=== PATIENT | male | born 1955 | race African-American/Black ===

== ENCOUNTER 2016-07-02 16:31 | Emergency (ER) | payer MEDICARE, OTHER ==
[~2016-07-02] VITALS: Ht 180.3 cm; Wt 50.5 kg
[2016-07-02 16:34] VITALS: Ht 180.3 cm; Wt 50.5 kg
[2016-07-02] MEDS ORDERED: SOD CHLORIDE 0.9% 500 ML IV STA (16:48)
[2016-07-02] MEDS ORDERED: TAMS-14 PO (17:10)
[2016-07-02] MEDS ORDERED: ASPI81TA3 PO (17:10)
[2016-07-02] MEDS ORDERED: CLOP75TA27 PO (17:11)
[2016-07-02] MEDS ORDERED: CALC667T PO (17:11)
[2016-07-02 17:13] LABS: ABNORMAL IP MESSAGE 1; BASOPHILS % 0.1 % (0.0-2.0); EOSINOPHILS % 0.1 % (0.0-7.0); HEMATOCRIT 24.9 % (42.0-52.0); HEMOGLOBIN 7.9 g/dl (14.0-18.0); LYMPHOCYTES # 0.5 10^3/ul (0.8-2.9); LYMPHOCYTES % 6.7 % (15.0-51.0); MEAN CORPUSCULAR HGB CONC 31.7 g/dl (32.0-37.0); MEAN CORPUSCULAR VOLUME 94.7 fl (82.0-101.0); MEAN PLATELET VOLUME 11.7 fl (7.4-10.4); MONOCYTE # 0.6 10^3/ul (0.3-0.9); MONOCYTES % 7.5 % (0.0-11.0); NEUTROPHIL # 6.4 10^3/ul (1.6-7.5); NEUTROPHILS % 85.2 % (39.0-77.0); PLATELET COUNT 224 10^3/UL (140-415); RED BLOOD COUNT 2.63 10^6/ul (4.70-6.10); WHITE BLOOD COUNT 7.5 10^3/ul (4.8-10.8)
[2016-07-02 17:15] LABS: ADD SCAN DIFF YES
[2016-07-02 17:27] LABS: CHLORIDE 97 mmol/L (97-110); POTASSIUM 4.8 mmol/L (3.5-5.1); SODIUM 144 mmol/L (135-144)
[2016-07-02 17:30] LABS: ANION GAP 29 (8-16); BLOOD UREA NITROGEN 57 mg/dl (7-20); CARBON DIOXIDE 23 mmol/L (21-31); CREATININE 11.55 mg/dl (0.61-1.24); GLUCOSE 127 mg/dl (70-220)
[2016-07-02 17:31] LABS: CALCIUM 9.3 mg/dl (8.4-10.2)
[2016-07-02 17:46] LABS: TROPONIN-I < 0.012 ng/ml (0.00-0.12)
--- NOTE | 2016-07-02 18:20 | RADRPT ---
PROCEDURE: XR Chest. CLINICAL INDICATION: Chest pain TECHNIQUE: AP view of the chest was performed. COMPARISON: None FINDINGS: Borderline cardiomegaly is present. The lungs are clear. No signs of pleural fluid or pneumothorax are seen. The osseous structures and soft tissues are unremarkable. IMPRESSION: No evidence for active cardiopulmonary disease. Borderline cardiomegaly. RPTAT: QQ .Leigh Ann Serrato MD, MD Date Time Electronically viewed and signed by .Leigh Ann Serrato MD, on 07/02/2016 18:20 .F/
[2016-07-02] MEDS ORDERED: SOD CHLORIDE 0.9% 500 ML IV ONE (18:30)
[2016-07-02 19:30] VITALS: BP 115/69; PULSE 67; RESP 17
--- NOTE | 2016-07-02 19:52 | ERD ---
ER Documentation Chief Complaint Date/Time DATE: 07/02/16 TIME: 19:48 Chief Complaint BROUGHT IN BY EMS FROM GAME DUE TO FEELING DIZZY HPI This a 60-year-old male who is here for low blood pressure. The patient said he had dialysis yesterday late afternoon and he took off too much fluid. The patient was umpiring a baseball game. He was getting up to go [place] the second game and he felt dizzy and sat down. He says he knew his blood pressure is low because he had this happen many times before the day after dialysis. The patient did eat food today. The patient states that he had no headache no chest pain no focal neurological complaints no speech changes no nausea vomiting diarrhea or abdominal pain. EMS reports systolic blood pressure in the 70s and 80s. ROS All systems reviewed and are negative except as per history of present illness. Medications Home Meds Reported Medications Calcium Acetate (Calcium Acetate) 667 Mg Tablet, 667 MG PO WITH MEALS, #30 TAB 07/02/16 Clopidogrel Bisulfate (Clopidogrel) 75 Mg Tablet, 75 MG PO DAILY, #30 TAB 07/02/16 Aspirin* (Aspirin* Chew) 81 Mg Tab.chew, 81 MG PO DAILY, TAB.CHEW 07/02/16 Tamsulosin Hcl* (Flomax*) 0.4 Mg Cap.er.24h, 0.4 MG PO HS, CAP 07/02/16 Allergies Allergies: Coded Allergies: No Known Allergy (Unverified , 07/02/16) PMhx/Soc History of Surgery: Yes (stent in kidney, dialysis fistula ) Hx Alcohol Use: No Hx Substance Use: No Hx Tobacco Use: No Smoking Status: Never smoker FmHx Family History: No coronary disease Physical Exam Vitals Vital Signs Date Time Temp Pulse Resp B/P Pulse Ox O2 Delivery O2 Flow Rate FiO2 07/02/16 18:03 75 16 91/60 100 Room Air 07/02/16 16:59 78 16 82/52 100 Room Air 07/02/16 16:34 98.5 77 16 72/40 98 Physical Exam Const: Well-developed, well-nourished Head: Atraumatic, normocephalic Eyes: Normal Conjunctiva, PERRLA, EOMI, normal sclera, no nystagmus ENT: Normal External Ears, Nose and Mouth, moist mucus membranes. Neck: Full range of motion. No meningismus, no lymphadenopathy. Resp: Clear to auscultation bilaterally, no wheezing, rhonchi, rales Cardio: Regular rate and rhythm, no murmurs, S1 S2 present Abd: Soft, non tender x 4, non distended. Normal bowel sounds, no guarding or rebound, no pulsitile abdominal masses or bruits Skin: No petechiae or rashes, no ecchymosis , no maculopapular rash Back: No midline or flank tenderness Ext: No cyanosis, or edema, FROM x 4, normal inspection, neurovascularly intact x 4 Neur: Awake and alert, STR 5/5 x 4, sensation intact x 4, no focal findings, cerebellum intact Psych: Normal Mood and Affect Result Diagram: 07/02/16 1705 07/02/16 170 Results 24 hrs Laboratory Tests Test 07/02/16 17:05 Anion Gap 29 Basophils # 0.010^3/ul Basophils % 0.1% Blood Urea Nitrogen 57mg/dl Calcium Level 9.3mg/dl Carbon Dioxide Level 23mmol/L Chloride Level 97mmol/L Creatinine 11.55mg/dl Eosinophils # 0.010^3/ul Eosinophils % 0.1% Glucose Level 127mg/dl Hematocrit 24.9% Hemoglobin 7.9g/dl Lymphocytes # 0.510^3/ul Lymphocytes % 6.7% Mean Corpuscular Hemoglobin 30.0pg Mean Corpuscular Hemoglobin Concent 31.7g/dl Mean Corpuscular Volume 94.7fl Mean Platelet Volume 11.7fl Monocytes # 0.610^3/ul Monocytes % 7.5% Neutrophils # 6.410^3/ul Neutrophils % 85.2% Nucleated Red Blood Cells # 0.010^3/ul Nucleated Red Blood Cells % 0.0/100WBC Platelet Count 53311^3/UL Potassium Level 4.8mmol/L Red Blood Count 2.6310^6/ul Red Cell Distribution Width 15.0% Sodium Level 144mmol/L Troponin I < 0.012ng/ml White Blood Count 7.510^3/ul Current Medications Medications (Trade) Dose Ordered Sig/Isa Route PRN Reason Start Time Stop Time Status Last Admin Dose Admin Sodium Chloride 500 ml @ 500 mls/hr Q1H STAT IV 07/02/16 16:48 07/02/16 17:47 DC 07/02/16 18:02 Sodium Chloride (NS) 500 ml @ 500 mls/hr Q1H ONCE IV 07/02/16 18:30 07/02/16 19:29 DC 07/02/16 18:51 Procedures/MDM Patient received 1 L normal saline blood pressure is now 115 systolic. Patient is walking around the ER and says he is not dizzy and has no symptoms to go. Departure Diagnosis: Primary Impression: Hypotension Hypotension type: hemodialysis-associated hypotension Qualified Code: I95.3 - Hemodialysis-associated hypotension Condition: Stable Patient Instructions: Low Blood Pressure (Hypotension) KRISTINE QUIROZ DO Jul 02, 2016 19:52
== END 2016-07-02 20:05 | disposition home or self-care (01) ==
LOC: E/R 16:31
DX: I95.3 Hypotension of hemodialysis (principal); I12.0 Hypertensive chronic kidney disease with stage 5 chronic kidney disease or end stage renal disease; N18.6 End stage renal disease; E11.9 Type 2 diabetes mellitus without complications; Z79.01 Long term (current) use of anticoagulants; Z79.82 Long term (current) use of aspirin; Z99.2 Dependence on renal dialysis
CPT/HCPCS: 71010; 80048; 84484; 85025; 99285; J7040